=== PATIENT | female | born 1950 | race Caucasian/White ===

== ENCOUNTER 2016-07-19 15:16 | Emergency (ER) | payer OTHER ==
[2016-07-19 16:07] LABS: BASOPHIL % 0.8 % (0-2); PLATELET COUNT 293 x10^3mcL (130-400); RED CELL DISTRIBUTION WIDTH 13.8 % (11.5-14.5)
[2016-07-19 16:20] LABS: CALCIUM 8.4 mg/dL (8.5-10.1); CARBON DIOXIDE 25.8 mmol/L (21-32); CREATININE SERUM 1.1 mg/dL (0.6-1.0); POTASSIUM SERUM 3.9 mmol/L (3.5-5.1)
[2016-07-19 16:24] LABS: BILIRUBIN TOTAL 0.5 mg/dL (0.20-1.00); MAGNESIUM 1.8 mg/dL (1.8-2.4); TOTAL PROTEIN, SERUM 6.5 g/dL (6.4-8.2)
[2016-07-19 16:27] LABS: ALBUMIN 3.2 g/dL (3.4-5.0)
[2016-07-19 18:29] LABS: microscopic required? YES; urine erythrocyte NEGATIVE (NEGATIVE)
[2016-07-19 19:29] VITALS: BP 108/64
== END 2016-07-19 19:29 | disposition home or self-care (01) ==
LOC: ED 15:16
PROVIDERS: Emergency Medicine
DX: G43.909 Migraine, unspecified, not intractable, without status migrainosus (principal); N39.0 Urinary tract infection, site not specified; E78.00 Pure hypercholesterolemia, unspecified; Z86.73 Personal history of transient ischemic attack (TIA), and cerebral infarction without residual deficits; Z79.899 Other long term (current) drug therapy
CPT/HCPCS: 83880; J0696; J2270; J2405; J7030; Q0092

== ENCOUNTER 2016-08-04 15:45 | Inpatient (IN) | payer OTHER ==
[~2016-08-04] VITALS: Ht 149.9 cm; Wt 81.2 kg
--- NOTE | 2016-08-04 16:10 | NUR ---
PT AMBULATORY TO ROOM T1 FROM TRIAGE WITH STEADY GAIT, BROUGHT TO ED BY DAUGHTER C/O CHEST PAIN SINCE 1200 TODAY AND NAUSEA AND VOMITING SINCE 0300. 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 PT GOWNED, PLACED ON GEOGRAPHY INSTRUCTOR.
[2016-08-04] MEDS ORDERED: GOOD SENSE OMEP20 MG PO (16:21)
[2016-08-04] MEDS ORDERED: OXYBUTYNIN CHLO15 M1 PO (16:21)
[2016-08-04] MEDS ORDERED: LIPI10 PO (16:22)
[2016-08-04] MEDS ORDERED: ASPIR 8181 MG PO (16:22)
[2016-08-04] MEDS ORDERED: TOPAMAX100 MG PO (16:22)
--- NOTE | 2016-08-04 16:58 | NUR ---
MSE COMPLETED BY DR. JOHNSTON.
--- NOTE | 2016-08-04 17:07 | NUR ---
LAB AT BEDSIDE FOR BLOOD DRAW.
--- NOTE | 2016-08-04 17:31 | NUR ---
PT TAKEN TO CT VIA SIMRANRSHINE BY JOSIE, PT IN NO DISTRESS.
[2016-08-04 17:36] LABS: BASOPHIL % 0.3 % (0-2); PLATELET COUNT 308 x10^3mcL (130-400); RED CELL DISTRIBUTION WIDTH 13.4 % (11.5-14.5)
[2016-08-04 17:45] LABS: CALCIUM 8.8 mg/dL (8.5-10.1); CARBON DIOXIDE 25.6 mmol/L (21-32); CREATININE SERUM 1.1 mg/dL (0.6-1.0); POTASSIUM SERUM 4.3 mmol/L (3.5-5.1)
--- NOTE | 2016-08-04 17:50 | NUR ---
PT WHEELED TO AND FROM BATHROOM, ATTEMPTED TO GIVE A URINE SAMPLE, UNABLE TO AT THIS TIME PER DAUGHTER, WILL ATTEMPT AGAIN SHORLTY. PT BACK IN ED GURNEY IN POSITION OF COMFORT, NO S/S OF DISTRESS NOTED.
[2016-08-04 17:54] LABS: ALBUMIN 3.5 g/dL (3.4-5.0); BILIRUBIN TOTAL 0.5 mg/dL (0.20-1.00); MAGNESIUM 2.1 mg/dL (1.8-2.4)
--- NOTE | 2016-08-04 17:54 | NUR ---
PORTABLE CHEST X-RAY IN PROGRESS AT BEDSIDE.
--- NOTE | 2016-08-04 18:38 | NUR ---
DR. CAPUTO AT BEDSIDE DISCUSSING PLAN OF CARE WITH PT AND DAUGHTER.
--- NOTE | 2016-08-04 18:39 | NUR ---
PT LAYING IN ED GURNEY IN POSITION OF COMFORT, A/O X4, RESPS EVEN AND UNLABORED, SKIN WARM/DRY TO TOUCH, NO S/S OF DISTRESS NOTED. COMFORT MEASURES IN PLACE, LUIS MIGUEL LIGHT WITHIN REACH, DAUGHTER AT BEDSIDE.
--- NOTE | 2016-08-04 19:13 | NUR ---
DR. JOHNSTON AT BEDSIDE DISCUSSING PLAN OF CARE WITH PT AND DAUGHTER.
--- NOTE | 2016-08-04 19:47 | NUR ---
REPORT GIVEN TO IVÁN
[2016-08-04 19:54] LABS: CHOLESTEROL/HDL RATIO 3.9; PHOSPHOROUS 3.6 mg/dL (2.5-4.9)
[2016-08-04 20:03] LABS: FREE T4 1.06 ng/dL (0.76-1.46); FREE THYROXINE INDEX 2.6 ug/dL (1.4-4.5); T4(THYROXINE) 7.4 ug/dL (4.7-13.3)
[2016-08-04 20:33] LABS: T3 TOTAL 1.14 ng/mL
[2016-08-04 20:38] VITALS: BP 140/84
--- NOTE | 2016-08-04 20:50 | NUR ---
REC'D AOX4, SPEECH CLEAR. C/O NAUSEA HAYDEN, CP 11/11. ATTACHED TELE 5, NSR. ON 2L VIA NC, NO SOB NOTED. NS INFUSING AT 50ML/HR TO LH. IV SITE WNL. ORIENTED TO ROOM AND SURROUNDINGS. CALL LIGHT WITHIN REACH. PROVIDED REPORT TO IVÁN PENNY FOR CONTINUITY OF CARE.
[2016-08-04 23:00] VITALS: BP 140/84
[2016-08-05] VITALS (7 sets, daily range): BP systolic 80–111; BP diastolic 35–80
[2016-08-05 01:14] LABS: UA SPECIFIC GRAVITY 1.015 (1.005-1.035); microscopic required? YES; urine erythrocyte NEGATIVE (NEGATIVE)
[2016-08-05 01:23] LABS: AMPHETAMINE QUAL UR NONE DETECTED (NEG <=1000)
--- NOTE | 2016-08-05 05:16 | NUR ---
PT SLEPT COMFORTABLY THROUGH OUT THE NIGHT. WAS IN NO ACUTE DISTRESS. PAIN MANAGEMENT ENFORCED. SAFETY MEASURES WERE ENSURED. CALL LIGHT WITHIN REACH.
[2016-08-05 06:52] LABS: BASOPHIL % 0.6 % (0-2); PLATELET COUNT 256 x10^3mcL (130-400); RED CELL DISTRIBUTION WIDTH 13.7 % (11.5-14.5)
[2016-08-05 07:09] LABS: CALCIUM 8.2 mg/dL (8.5-10.1); CARBON DIOXIDE 23.3 mmol/L (21-32); PHOSPHOROUS 3.3 mg/dL (2.5-4.9); POTASSIUM SERUM 3.5 mmol/L (3.5-5.1)
--- NOTE | 2016-08-05 09:00 | NUR ---
PT ON BED, AWAKE, ALERT, AND ORIENTED. HAS NO COMPLAINT OF PAIN, SOB, OR DIZZINESS. RESPONDS WELL TO QUESTION AND ANSWER. CLEAR JOSELITO LUNG FIELD, SYMMETRICAL CHEST EXPANSION AND UNLABORED, ACTIVE BOWEL SOUNDS NOTED. SIDE RAILS UP, CALL LIGHT WITHIN REACH, WILL CONTINUE TO MONITOR
--- NOTE | 2016-08-05 11:30 | NUR ---
PT'S ACCUCHECK SHOWED 104. NO COVERAGE NEEDED.
--- NOTE | 2016-08-05 14:00 | NUR ---
PT ON BED, ASLEEP.
--- NOTE | 2016-08-05 14:22 | NUR ---
P.T. NOTES Pt CLEARED PER RN FOR PT EVAL. Pt ADMITTED TO HOSPITAL S/P CHEST PAIN AND GASTRITIS. LIVES AT HOME W/FAMILY WHO ASSIST HER WITH ADLs, AMBU W/QUAD CANE AT BASELINE. S: Pt PRESENTS AWAKE, ALERT AND AGREEABLE FOR PT EVAL. TONGAN AND SOME [place] LEONEAN SPEAKING. 2/10 GENERALIZED BODY PAIN AT THIS TIME. ORIENTED X 3 AT THIS TIME BUT CONFUSED AT TIMES AND SLOW TO RESPOND. O: PLEASE SEE EVAL FOR DETAILS. VS: SP02 98%, HR 76BPM, BP SUPINE 86/49, IN SITTING 99/66. DENIES DIZZINESS. Pt MOSTLY REQUIRES MIN-MOD A FOR BED MOB, TRANSFERS AND GT WITH FWW FOR 2 X 15 FT. Pt REQUIRED MANUAL ASSIST W/FWW USE D/T H/O CVA W R SIDED HEMIPARESIS NOTED. Pt EDU ON SAFETY, FALL PREVENTION, AND ROLE OF PT W/GOOD LEARNING EXPRESSED. SAFELY ASSISTED BTB W/ALL LINES INTACT, CALL LIGHT AND TRAY IN REACH. HOB ELEVATED. COOPERATIVE AND APPRECIATIVE OF PT CARE. A: Pt TOLERATED PT WELL. FALL RISK D/T DECLINE IN FUNCTION AND R-SIDED HEMIPARESIS. R UE FLACCID, R LE GROSSLY GRADED 0-2/5. L UE/LE GROSSLY GRADED 3+/5 TO 4-/5. PLEASE ADVANCE GT WITH QUAD CANE VS HEMIWALKER. Pt DEMO HEMIPLEGIC GAIT AND REQUIRES ASSIST FOR SAFE DIRECTIONAL CHANGES WELL NEGOTIATING OBSTACLES. MAINTAINS R HIP EXTERNAL ROTATION W/TOE OUT AND INCREASED R HIP FLEXOR AND ADDUCTOR COMPENSATION FOR ADVANCING RLE DURING GT. P: POC REVIEWED W/ENAMEL FINISHER. PLEASE SEE PATIENT ONCE DAILY, 6X/WK,1 WEEK. EVAL 38' [phone] [id number] TUG 15 SEC Pt PROVIDED W/TRANSFER TRAINING. ASSISTED W/COMMODE TRANSFER FOR TOILETING W/VC FOR PROPER USE OF GRAB BAR FOR SAFETY. DEMO GOOD LEARNING. PERFORMED SELF PERICARE AND SAFELY ASSISTED BTB W/CALL LIGHT IN HAND. 1 TA 10' [phone]
--- NOTE | 2016-08-05 17:00 | NUR ---
DR. OSPINA TALKING TOP THE PATIENT AND THE FAMILY. PT ON NPO FOR U/S GB
--- NOTE | 2016-08-05 17:44 | NUR ---
PT'S ACCUCHECK SHOWED 139. NO COVERAGE NEEDED. ZOFRAN GIVEN COVERAGE FOR NAUSEA
--- NOTE | 2016-08-05 18:41 | NUR ---
DR. OSPINA WAS VANG AWARE OF PT'S BP OF 80/35 WITH A RECHECK OF 107/61, PT IS ASYSMPTOMATIC. 250 BOLUS WAS ORDERED AND STARTED. WILL CONTINUE TO MONITOR
--- NOTE | 2016-08-05 19:30 | NUR ---
PT IS ALERT AND ORIENTED. MOSTLY QUIET. SEIZURE PRECAUTION. LUNGS CLEAR ON AUSCULTAITONS BILATERALLY UPPER AND LOWER BASES. WITH 2 LITERS NASAL CANNULA RIGHT SIDED WEAKNESS. GENERALIZED BODY WEAKNESS. FALL RISK PRECAUTIONS. AMBULATORY WITH ASSISTANCE. STILL HAS IV NS AT 50 ML PER HOUR INFUSING WELL IN THE LEFT HAND. PATENT AND INTACT. WILLMONITOR.
--- NOTE | 2016-08-05 19:30 | NUR ---
RECIEVED PT AT BEDSIDE. PT IS AAO X 4 AND IS PORTUGUESE SPEAKING ONLY. DENIES ANY PAIN AT THIS TIME. PT IS ON TELE 5. SHE HAS AN IV IN HER L HAND RUNNING 50 ML/HR NS. HER BOWEL SOUNDS ARE ACTIVE WITH HER LAST BM WAS 5-3-17. PULSES ARE PRESENT, NO EDEMA NOTED. BED IS IN THE LOWEST POSITION AND THE CALL LIGHT IS WITHIN REACH. WILL CONTINUE TO MONITOR.
[2016-08-06 03:53] VITALS: BP 99/56
--- NOTE | 2016-08-06 04:37 | NUR ---
ASSISTED IN CHANGING PT'S GOWN AND CHUCKS. PT IS RESTING COMFORTABLY WATCHING TV. BED IN LOWEST POSITION. CALL LIGHT WITHIN REACH. NO ACUTE DISTRESS NOTED. WILL CONTINUE TO MONITOR.
--- NOTE | 2016-08-06 05:08 | NUR ---
PT IS STILL RESTING IN BED, WATCHING TELEVISION. NOT ACUTE DISTRESS NOTED AT THIS TIME. IV IS STILL PATENT AND RUNNING 50 ML\HR OF NS. ALL NEEDS HAVE BEEN MET. WILL ENDORSE TO ONCOMING SHIFT.
[2016-08-06 05:36] VITALS: BP 105/58
[2016-08-06 06:01] LABS: BASOPHIL % 0.7 % (0-2); PLATELET COUNT 240 x10^3mcL (130-400); RED CELL DISTRIBUTION WIDTH 13.6 % (11.5-14.5)
[2016-08-06 06:28] LABS: CALCIUM 8.2 mg/dL (8.5-10.1); CARBON DIOXIDE 22.3 mmol/L (21-32); PHOSPHOROUS 3.3 mg/dL (2.5-4.9); POTASSIUM SERUM 3.9 mmol/L (3.5-5.1)
--- NOTE | 2016-08-06 08:26 | NUR ---
AM ROUNDS DONE BY DR. PIÑA AND MEDICAL TEAM. PLAN FOR SURGICAL CONSULTS. PT AGREED WITH PLAN. RESTING IN BED IN NO DISTRESS. NO C/O PAIN OR DISCOMFORT AT THIS TIME. IVF INFUSING WELL AND SITE CLEAR. CALL LIGHT WITHIN REACH. WILL CONTINUE W/PLAN OF CARE.
[2016-08-06 09:18] VITALS: BP 120/66
[2016-08-06 13:07] VITALS: BP 105/60
--- NOTE | 2016-08-06 16:17 | NUR ---
RESTING IN NO DISTRESS. NO C/O PAIN AT THIS TIME.
--- NOTE | 2016-08-06 16:33 | NUR ---
P.T. NOTES POSS LAP ERIN PER CHART [id number] S:Pt WAS SEEN AWAKE & ALERT IN BED, SPEAKS KENYAN, ABLE TO FOLLOW SIMPLE COMMANDS W/ TACTILE & GESTURE CUES, ShieldEffectRACOM PHONE AVAILABLE; NO C/O PAIN OR DIZZINESS AT THIS TIME; AGREEABLE & COOPERATIVE W/ P.T.; STATES SHE HAS (R)AFO (AT HOME); DAUGHTER IS HER CAREGIVER. O:BED MOBILITY: MIN ASSIST IN SUPINE TO SIT TRANSFERS: MIN ASSIST IN SIT TO STAND W/ NBQC; MIN ASSIST IN TOILETTING, ABLE TO URINATE & PERFORM PERINEAL CARE GAIT: MOD/MIN ASSIST W/ NBQC X 32 FT Pt ASSISTED TO BED SAFELY; HOB ELEVATED, CALL DOWELL, PHONE, TABLE IN REACH; APPRECIATIVE; O2 N/C @2LPM RE APPLIED; BED ALARM ON. Pt WAS GIVEN THERA EXER UE/LE INC W/ BED ACT. A:Pt DEMO GOOD RESPONSE TO TX; FALL RISK; OBESE; WADDLING GAIT; DEMO CIRCUMDUCTING GAIT FOR FOOT CLEARANCE FROM FLOOR ON (R)LE, AFO NOT AVAILABLE; REDUCED PACE GAIT; H/O CVA (R)SIDE DEFICIT, (R)UE FLEXION POSTURING; PROGRESSING W/ FUNC MOB; BP=94/52, 105/60; HR=70, 76; O2 SAT ROOM AIR=95% P: CONT PT; POC REVIEWED W/ SPECIAL EDUCATION ASSOCIATE; WILL BENEFIT W/ P.T.; PROGRESS ITZEL. EX8,TA30,GT15
[2016-08-06 17:34] VITALS: BP 95/55
--- NOTE | 2016-08-06 18:21 | NUR ---
RESTING IN BED, EATING DINNER. NO ACUTE DISTRESS NOTED. PT DENIES PAIN OR DISCOMFORT AT THIS TIME. IVF INFUSING WELL AND SITE CLEAR. CALL LIGHT WITHIN REACH.
--- NOTE | 2016-08-06 19:53 | NUR ---
PT RESTING IN BED. RR EVEN AND UNLABORED. NO ACUTE DISTRESS NOTED. TELE 5, SR, HR75. DENIES CP/ PRESSURE. PULSES GOOD, NO EDEMA NOTED. LUNG SOUNDS CTA, ON 2L NC. DENIES SOB/ DIFFICULTY BREATHING. BOWEL SOUNDS ACTIVE. R. SIDED WEAKNESS. SKIN INTACT. IV IN L. HAND, INTACT AND PATENT. BED IN LOWEST POSITION. CALL LIGHT WITHIN REACH. WILL CONTINUE TO MONITOR.
[2016-08-06 21:11] VITALS: BP 109/60
--- NOTE | 2016-08-07 03:13 | NUR ---
PT RESTING IN BED. RR EVEN AND UNLABORED. NO ACUTE DISTRESS NOTED. BED IN LOWEST POSITION. CALL LIGHT WITHIN REACH. WILL CONTINUE TO MONITOR.
[2016-08-07 05:20] VITALS: BP 101/66
[2016-08-07 06:27] LABS: BASOPHIL % 0.5 % (0-2); PLATELET COUNT 250 x10^3mcL (130-400); RED CELL DISTRIBUTION WIDTH 13.2 % (11.5-14.5)
[2016-08-07 06:41] LABS: CARBON DIOXIDE 22.7 mmol/L (21-32); CHLORIDE SERUM 111 mmol/L (98-107); CREATININE SERUM 0.9 mg/dL (0.6-1.0); GFR1 > 60 mL/min; GLUCOSE SERUM 104 mg/dL (74-106); PHOSPHOROUS 3.3 mg/dL (2.5-4.9); POTASSIUM SERUM 3.7 mmol/L (3.5-5.1); SODIUM SERUM 145 mmol/L (136-145)
--- NOTE | 2016-08-07 07:06 | NUR ---
RECEIVED IN NO DISTRESS, AWAKE ALERT AND ORIENTED. NO C/O PAIN OR DISCOMFORT. VS WNL. IVF INFUSING WELL AND SITE CLEAR. CALL LIGHT WITHIN REACH. WILL CONTINUE W/PLAN OF CARE.
--- NOTE | 2016-08-07 07:50 | NUR ---
PT TRANSPORTED TO THE O.R AWAKE, ALERT AND ORIENTED. NO RESP. DISTRESS NOTED. NO C/O PAIN OR DISCOMFORT AT THIS TIME. O.R NURSE NORIFIED THAT LAB WILL RE-DRAW PTT START DUE TO DESCREPANCY.
[2016-08-07 11:00] VITALS: BP 114/63
--- NOTE | 2016-08-07 11:06 | NUR ---
PT BACK FROM O.R IN NO DISTRESS. AWAKE AND ALERT. VS STABLE. INCISOIN SITE WITH BANDAIDS X3 AND 4X4 X1 INTACT. PT ASSISTED TO BED, DENIES PAIN AT THIS TIME. WILL CONTINUE W/PLAN OF CARE.
--- NOTE | 2016-08-07 12:13 | NUR ---
PT NOTES SPOKE W/ RN "JEREMIAH" REGARDING PATIENT. RN IS AWARE THAT PATIENT WILL NEED NEW ORDER FOR PHYSICAL THERAPY IN ORDER TO RESUME PT. PATIENT HAD SURGERY TODAY "LAPAROSCOPIC CHOLECYSTECTOMY" SEE DOCTOR NOTES. PRIMARY PHYSICAL THERAPIST AWARE. PVE
--- NOTE | 2016-08-07 13:08 | NUR ---
C/O PAIN AT THE INCISION SITE, MEDICATED WITH MORPHINE IVP. FAMILY AT BEDSIDE. NO DISTRESS NOTED.
[2016-08-07 13:35] VITALS: BP 98/57
--- NOTE | 2016-08-07 14:40 | NUR ---
SLEEPING AT THIS TIME, NO DISTRESS. FAMILY AT BEDSIDE.
[2016-08-07 17:12] VITALS: BP 113/59
--- NOTE | 2016-08-07 18:55 | NUR ---
PT TOLERATED WELL WITH FULL LIQ. DIET. NO RESP. DISTRESS NOTED. NO C/O ABD. PAIN AT THIS TIME. VS REMAINS WNL. IVF INFUSING WELL AND SITE CLEAR. CALL LIGHT WITHIN REACH. WILL BE ENDORSED TO INCOMING SHIFT.
--- NOTE | 2016-08-07 19:42 | NUR ---
PT RESTING IN BED. RR EVEN AND UNLABORED. NO ACUTE DISTRESS NOTED. PT AOX4. TELE #5, SR, HR 66. DENIES CP/PRESSURE. PULSES GOOD, NO EDEMA NOTED. LUNG SOUNDS CLEAR, ON 2L NC. BOWEL SOUNDS ACTIVE. R SIDED WEAKNESS. 1 4X4 AND 3 BANDAGES TO ABD, CDI. IV IN RH, INTACT AND PATENT. BED IN LOWEST POSITION CALL LIGHT WITHIN REACH. WILL CONTINUE TO MONITOR.
[2016-08-07 21:12] VITALS: BP 116/68
--- NOTE | 2016-08-08 03:32 | NUR ---
PT RESTING IN BED. RR EVEN AND UNLABORED. NO ACUTE DISTRESS NOTED. BED IN LOWEST POSITION. CALL LIGHT WITHIN REACH. WILL CONTINUE TO MONITOR.
[2016-08-08 06:01] VITALS: BP 124/61
[2016-08-08 06:14] LABS: BASOPHIL % 0.3 % (0-2); PLATELET COUNT 237 x10^3mcL (130-400); RED CELL DISTRIBUTION WIDTH 13.5 % (11.5-14.5)
[2016-08-08 06:30] LABS: CALCIUM 7.8 mg/dL (8.5-10.1); CHLORIDE SERUM 108 mmol/L (98-107); CREATININE SERUM 0.9 mg/dL (0.6-1.0); GFR1 > 60 mL/min; GLUCOSE SERUM 100 mg/dL (74-106); POTASSIUM SERUM 3.5 mmol/L (3.5-5.1); SODIUM SERUM 141 mmol/L (136-145)
--- NOTE | 2016-08-08 07:48 | NUR ---
PT WAS ENDORSE TO ME, RESTING VERY COMFORTABLE, CALL LIGHT IN REACH, BED AT LOW POSTION, WILL CONTINUE PLAN OF CARE.
--- NOTE | 2016-08-08 07:57 | NUR ---
AWAKE AND ALERT.NO ACUTE DISTRESS NOTED.NO C/O PAIN OR DISCOMFORT. IVF INFUSING WELL AND SITE CLEAR. CALL LIGHT WITHIN REACH. WILL CONTINUE W/PLAN OF CARE.
[2016-08-08 09:17] VITALS: BP 111/91
--- NOTE | 2016-08-08 09:47 | NUR ---
PT ALERT AND AWAKE, DENIES PAIN AT THIS TIME, IV NS INFUSING R HAND NO SWELLING OR REDNESS NOTED. PT TELE 5 NSR, NO CHEST DISCOMFORT OR DISTRESS NOTED. PT WAS COLD, GAVE HER AN EXTRA BLANKET. CALL LIGHT IN REACH, WILL CONTINUE TO MONITOR.
--- NOTE | 2016-08-08 12:32 | NUR ---
PT IS SITTING UP IN BED WITH DAUGHTER AND GRANDKIDS AT HER BEDSIDE. DENIES ANY PAIN, DISCOMFORT OR DISTRESS AT THIS TIME. GAVE PT NOON MEDS, TOLERATED WELL. DAUGHTER IS ASSISTING PT WITH HER LUNCH. CALL LIGHT IN REACH , WILL CONTINUE PLAN OF CARE.
[2016-08-08 14:06] VITALS: BP 103/60
--- NOTE | 2016-08-08 14:49 | NUR ---
PT SITTING UP IN BED TALKING WITH DAUGHTER AND GRANDKIDS. PT DENIES ABD PAIN OR DISCOMFORT AT THIS TIME. DAUGHTER REQUESTED WIPES, BROUGHT THEM OVER TO HER. BED IN LOW POSITION, CALL LIGHT IN REACH, WILL CONTINUE PLAN OF CARE.
[2016-08-08 17:43] VITALS: BP 107/59
--- NOTE | 2016-08-08 18:07 | NUR ---
ASSISTED WITH BEDPAN, PM CARE DONE, REPOSITIONED HER IN BED FOR COMFORT. CALL LIGHT IN REACH, HEAD OF BED ELEVATED. PT DENIES PAIN OR DISCOMFORT AT THIS TIME.
--- NOTE | 2016-08-08 19:10 | NUR ---
NURSING CO-SIGN THE DOCUMENTATION ENTERED BY THE RN JULISA HAS BEEN REVIEWED. REVIEWED/CO-SIGNED BY: Sobeida Hill DOCUMENTATION DONE BY:LILLIAN MATIAS
--- NOTE | 2016-08-08 19:32 | NUR ---
PT RESTING IN BED. RR EVEN AND UNLABORED. NO ACUTE DISTRESS NOTED. PT AOX4. TELE # 5, SR, HR93. DENIES CP/PRESSURE. PULSES GOOD, NO EDEMA NOTED. LUNG SOUNDS CLEAR, ON 2L NC. DENIES SOB/ DIFFICULTY BREATHING. BOWEL SOUNDS ACTIVE. R. SIDED WEAKNESS. 4X4 AND [address], CDI. IV IN R. HAND, INTACT AND PATENT. BED IN LOWEST POSITION. CALL LIGHT WITHIN REACH. WILL CONTINUE TO MONITOR.
[2016-08-08 20:57] VITALS: BP 115/68
--- NOTE | 2016-08-08 22:13 | NUR ---
TEMP 100.4, TYLENOL ADMINISTERED PER EMAR.
--- NOTE | 2016-08-09 01:38 | NUR ---
PT RESTING IN BED. RR EVEN AND UNLABORED. NO ACUTE DISTRESS NOTED. BED IN LOWEST POSITION. CALL LIGHT WITHIN REACH. WILL CONTINUE TO MONITOR.
[2016-08-09 05:31] VITALS: BP 143/70
[2016-08-09 06:24] LABS: BASOPHIL % 0.4 % (0-2); PLATELET COUNT 234 x10^3mcL (130-400); RED CELL DISTRIBUTION WIDTH 13.6 % (11.5-14.5)
[2016-08-09 07:03] LABS: CALCIUM 7.8 mg/dL (8.5-10.1); CARBON DIOXIDE 25.3 mmol/L (21-32); MAGNESIUM 1.8 mg/dL (1.8-2.4); PHOSPHOROUS 3.1 mg/dL (2.5-4.9); POTASSIUM SERUM 3.8 mmol/L (3.5-5.1)
--- NOTE | 2016-08-09 08:08 | NUR ---
AT 0720 - RECEIVED PATIENT FROM NIGHT NURSE. PATIENT AWAKE, ALERT AND ORIENTED. MONITOR SHOWING SINUS RHYTHM; RATE 79. RESPIRATIONS REGULAR. IV INFUSING NS AT 40ML/HR DRESSING TO SURGICAL INCISIONS ARE DRY AND INTACT. AT 0735 - PATIENT WASHED AND REPOSITIONED. SAT UP IN BED FOR BREAKFAST. TAKEN OFF SUPPLIMENTAL O2. INSTRUCTED IN USE OF INSENTIVE SPIROMETER. O2 ON ROOM AT 93%. PATIENT ALSO ENCOURAGED TO AMBULATE WITH CANE AND ASSISTANCE. SCDS TO BLE IN PLACE. PATIENT INSTRUCTED IN IMPORTANCE OF INSENTIVE SPIROMETER, SCDS AND EARLY AMBULATION IN PREVENTION OF POST-OP COMPLICATIONS. AT 0800 - SEEN BY DR PIÑA DURING MORNING ROUNDS. MEDICAL TEAM DOCTORS, INDU BREWER AND MYSELF PRIMARY NURSE ALSO PRESENT. DR SANTO SPOKE WITH PATIENT IN [place]. PLAN TO DC HOME LATER TODAY.
--- NOTE | 2016-08-09 09:53 | NUR ---
PATIENT AMBULATED TO BATHROOM AND BACK TO BED, USING 4 PRONG CANE AND MODERATE ASSISTANCE BY NURSING STAFF. SOME SOB NOTED ON EXERTION. O2 SAT 95% ON ROOM AIR FOLLOWING ACTIVITY. SETTLED IN BED, RIGHT ARM ON PILLOW. CALL LIGHT WITHIN REACH. TAKEN OFF CARDIAC MONITORING: STATUS CHANGED TO MED-SURG. PATIENT MEDICATED FOR ABDOMINAL PAIN PER EMAR.
[2016-08-09 10:13] VITALS: BP 139/67
--- NOTE | 2016-08-09 12:51 | NUR ---
PATIENT SITTING IN CHAIR FOR LUNCH. HAS BEEN SITTING OUT OF BED SINCE PT HAS WORKED WITH PATIENT. PAIN APPEARS UNDER CONTROL AT THIS THIS TIME. NO NAUSEA OR VOMITING BUT APPPEARS TO HAVE POOR APPETITE.
--- NOTE | 2016-08-09 13:59 | NUR ---
AT 1330 - PATIENT BACK IN BED. HAS AMBULATED IN ROOM 3 X TODAY. DRESSINGS TO ABDOMINAL SURGICAL INCISIONS CHANGED. PHOTO DOCUMENTED PER PROTOCOL. ALL INCISIONS WITH GUERITA LOOK CLEAN AND DRY WITHOUT REDDNESS OR DISCHARGE. AWAITING DISCHARGE ORDERS.
[2016-08-09 14:37] VITALS: BP 139/67
[2016-08-09] MEDS ORDERED: LEVAQUIN250 M1 PO (14:38)
[2016-08-09] MEDS ORDERED: LAC PO (14:38)
[2016-08-09] MEDS ORDERED: ACETAMINOPHEN-H1 TA1 PO (14:39)
[2016-08-09] MEDS ORDERED: COLACE100 MG PO (14:39)
[2016-08-09 14:40] VITALS: BP 131/66
--- NOTE | 2016-08-09 15:27 | NUR ---
AT 1500 - RECEIVED DISCHARGE ORDERS. IV CATHETERS X 2 REMOVED INTACT. PATIENT PREPARED FOR DISCHARGE. CALLED PATIENT'S DAUGHTER. SHE WILL PICK-UP PATIENT.
--- NOTE | 2016-08-09 16:13 | NUR ---
AT 1600 - PATIENT WAS TAKEN TO DISCHARGE OFFICE BY MANNY AND LEFT HOSPITAL WITH DAUGHTER WITHOUT BEING GIVEN OR EXPLAINED DISCHARGE INSTRUCTIONS. PATIENT'S DAUGHTER KARLIE WAS CALLED AND SHE IS COMING BACK TO GET PATIENT INSTRUCTIONS AND PRESCRIPTION.
--- NOTE | 2016-08-09 16:46 | NUR ---
PRINTED DISCHARGE INSTRUCTIONS GIVEN AND EXPLAINED TO PTHAM'S DAUGHTER. PRESCRIPTION PROVIDED.
--- NOTE | 2016-08-09 16:55 | NUR ---
P.T. NOTES/RE ASSESSMENT [id number] 08/07/16 LAP ERIN S:Pt WAS SEEN AWAKE & ALERT IN BED, SPEAKS FRISIAN/SINHALA, GRAND TRAVERSE AT TIMES, ORIENTED x3, ABLE TO FOLLOW COMMANDS, AGREEABLE & COOPE- RATIVE W/ P.T.; DEMO POST OP ABD PAIN (P.S.09/11), PRE MEDICATED, NO C/O DIZZINESS AT THIS TIME, OWN WBQC IN ROOM, (R)AFO NOT AVAILABLE. O:BED MOBILITY: MOD/MIN ASSIST IN SUPINE TO SIT, LOGROLL TECH TRANSFERS: MIN/CG ASSIST IN SIT TO STAND W/ WBQC GAIT: CG ASSIST W/ WBQC X 32 FT A:Pt DEMO GOOD RESPONSE TO P.T. SESSION; POST OP, OBESE, FALL RISK; WADDLING GAIT; Pt EDUC ON SAFE GAIT, LOGROLL TECH, HEP, BREATHING TECH, USE OF INCENTIVE SPIROMETER, DEMO UNDERSTANDING. P: CONT PT ONCE DAILY 6X/WK X 1 WK; POC & DX DISCUSSED W/ RADIO MECHANIC APPRENTICE; WILL BENEFIT W/ P.T. DURING ACUTE STAY. RE EVAL20 GCODES:[id number] [facility] REACH SCORE:22 inches [id number] Pt REQ CG ASSIST IN TOILETTING W/ WBQC, ABLE TO DO PERINEAL CARE; WAS GIVEN THERA EXER UE/LE ITZEL; AGREED TO SIT UP IN CHAIR AT BEDSIDE, NURSE AWARE; CALL DOWELL, PHONE, TABLE IN REACH; APPRECIATIVE; Pt EDUC ON HAND PLACEMENT FOR SAFE TRANSFERS. EX8,TA15
== END 2016-08-09 15:57 | disposition home or self-care (01) | DRG 263 ==
LOC: ED 15:45 → DU 19:19 → MU 08-05 07:49 → DU 08-05 07:49 → MU 08-09 09:51
PROVIDERS: Emergency Medicine; Family Medicine; Surgery; ADMIT Family Medicine
PROC: 0FT44ZZ Resection of Gallbladder, Percutaneous Endoscopic Approach (ICD-10-PCS; principal; 2016-08-07 09:00)
DX: K80.00 Calculus of gallbladder with acute cholecystitis without obstruction (principal); E43 Unspecified severe protein-calorie malnutrition; I11.0 Hypertensive heart disease with heart failure; K82.1 Hydrops of gallbladder; M94.0 Chondrocostal junction syndrome [Tietze]; I69.351 Hemiplegia and hemiparesis following cerebral infarction affecting right dominant side; K21.9 Gastro-esophageal reflux disease without esophagitis; E78.5 Hyperlipidemia, unspecified; G40.909 Epilepsy, unspecified, not intractable, without status epilepticus; N39.0 Urinary tract infection, site not specified; R73.03 Prediabetes; E78.1 Pure hyperglyceridemia; Z68.36 Body mass index [BMI] 36.0-36.9, adult; I69.359 Hemiplegia and hemiparesis following cerebral infarction affecting unspecified side; E83.51 Hypocalcemia; G43.909 Migraine, unspecified, not intractable, without status migrainosus
CPT/HCPCS: 80201; 80307; 82962; 83880; 84439; 94150; 97110-GP; 97116-GP; 97164; 97530-GP; C9113; G0378; G0480; J0696; J1170; J1644; J2270; J2405; J3010; J3490; J7030; Q0092